=== PATIENT | male | born 1935 | race Caucasian/White ===

== ENCOUNTER 2022-08-19 09:00 | Outpatient (RCR) | payer MEDICARE, OTHER, SELFPAY ==
--- NOTE | 2022-08-13 12:10 | HMH.PTOPEV ---
PT Outpatient Evaluation Rehab PT Outpatient Evaluation Start: 08/13/22 10:48 Freq: Status: Active Protocol: Document 08/13/22 10:49 [email or web address] (Rec: 08/13/22 12:10 [email or web address] [id number]) E-signed By Jatinder Chase, PT Outpatient Therapy Subjective History Subjective History Pt. is a 86 year old male who presents to [facility] in [place] for the initial evaluation this date(08/13/22) w/ c/o chronic and intermittent RLE knee P!, weakness, and gait disturbance of insidious onset that has worsened over the last year. Pt. reports having one fall 3 months ago as a result of weakness and pain in the RLE knee. Pt. c/o some dizziness, but states having symptom of dizziness with dehydration. Pt. also reports previous falls prior to the recent that were secondary to tripping over a cardboard box flap. PMH includes S/P RLE knee meniscal repair, history of prostate cancer, Afib., pacemaker, and Ventricular Tachycardia. Chief Complaint Pain,Stiff,Gives out/Unstable, Weakness Symptom Type Ache,Sharp,Dull,Stabbing, Shooting Symptoms Relieved By Rest/Positioning,Brace/Support Symptoms Aggravated By Standing,Physical Activity, Twisting,Walking Prior Functional Limitations None Current Functional Limitations Housework,Standing,Squatting, Recreation Activity,Walking, Stairs,Balance,Bending/ Stooping Symptom Description Activity Dependent Level of pain today (0-10) 0 Pain scale - at its best (0-10) 0 Pain scale - at its worst (0-10) 10 Hip/Knee Eval Gait Observation General Gait Pattern Observation Antalgic Gait,Decrease Weight Bear (R),Decrease Stride Lngth (L) Assistive Device Assistive Devices None / NA Palpation Tenderness right Knee Palpation Finding Tenderness MMT Hip Flexion Strength Grade 4- Good- Hip Abduction Str
== END 2022-10-02 15:10 | disposition home or self-care (01) ==
LOC: PT 09:00
PROVIDERS: Visit Provider Internal Medicine Adolescent Medicine
DX: R26.9 Unspecified abnormalities of gait and mobility (principal)
CPT/HCPCS: 97110; 97163